=== PATIENT | female | born 1935 | race Hispanic/Latino ===

== ENCOUNTER 2016-11-10 13:20 | Outpatient (CLI) | payer MEDICARE ==
--- NOTE | 2016-11-10 15:00 | Ultrasound Report ---
ULTRASOUND RENAL BILATERAL HISTORY: Recurrent UTI. TECHNIQUE: transabdominal ultrasound with color Doppler interrogation. FINDINGS: The right kidney measures 9.1 x 4.7 x 6.0cm. Right renal cortex: 1.2cm. The left kidney measures 9.3 x 3.9 x 4.9cm. Left renal cortex: 1.3cm. Scans of the kidneys show normal renal contours. There is normal central calyceal clustering and good preservation of the cortical thickness. There is no evidence of mass or hydronephrosis. A 1.1 cm shadowing stone is noted in the mid right kidney. The views of the bladder and the region of the ureters appear normal. IMPRESSION: Right renal calculus, nonobstructing. Otherwise, unremarkable exam.
== END 2016-11-10 13:21 | disposition home or self-care (01) ==
LOC: US 13:20
PROVIDERS: ATTEND Internal Medicine
DX: N39.0 Urinary tract infection, site not specified (principal); N20.0 Calculus of kidney
CPT/HCPCS: 76770